=== PATIENT | female | born 1990 | race Caucasian/White ===

== ENCOUNTER 2023-08-03 05:24 | Inpatient (IN) ==
[2023-08-03] MEDS ORDERED: Prochlorperazine 5 mg/ml 2 ml VIAL (10 mg) IV PRN (05:45)
[2023-08-03] MEDS ORDERED: Lidocaine 1% VIAL 10 MG/ML 30 ML VIAL INJ PRN (05:45)
[2023-08-03 06:43] LABS: ABS Eosinophils 0.1 10^3/uL (0.0-0.5); ABS Lymphocytes 1.2 10^3/uL (1.0-4.8); ABS Monocytes 0.4 10^3/uL (0.0-0.9); ABS Neutrophils 6.6 10^3/uL (1.5-7.6); Eosinophil % 1.1 %; Hematocrit 33.9 % (35-45); Hemoglobin 11.9 g/dL (11.5-14.3); Lymphocyte % 14.2 %; Mean Corpuscular Hemoglobin 33.3 pg (27-33); Mean Corpuscular Hgb Conc 35.2 g/dL (31-36); Mean Corpuscular Volume 94.6 fL (80-97); Mean Platelet Volume 7.5 fL (7.5-11.2); Platelet Count 178 10^3/uL (150-450); Red Blood Count 3.58 10^6/uL (3.63-4.92); Red Cell Distribution Width 12.6 % (12-17); White Blood Count 8.3 10^3/uL (3.8-11.8)
[2023-08-03 07:11] LABS: Urine Benzodiazepine Screen None Detected (None Detect); Urine Opiates Screen None Detected (None Detect)
[2023-08-03] MEDS: OBEPIDURAL (200 ML) 200 ML EPIDURAL SCH (07:38)
[2023-08-03] MEDS: Lactated Ringers 1000 ml BAG 1,000 ML IV SCH (07:38)
[2023-08-03] MEDS ORDERED: Phenylephrine 40 mcg/mL 10mL (400mcg) SYRINGE IV PUSH PRN ×2 (08:37)
[2023-08-03] MEDS ORDERED: Sodium Citrate/Citric Acid LIQ 15 ML UDC PO PRN (08:37)
[2023-08-03] MEDS: Oxytocin in LR 20,000 MILLI.UNIT/1,000 ML BAG IV ONE (11:42)
[2023-08-03] MEDS: OBEPIDURAL (200 ML) 200 ML EPIDURAL ONE (13:25)
[2023-08-03] MEDS ORDERED: Glycerin ADULT 2.4 gm SUPP PR PRN (13:28)
[2023-08-03] MEDS ORDERED: Lactated Ringers 1000 ml BAG 1,000 ML IV SCH (14:00)
[2023-08-03] MEDS: Dibucaine 1% OINT 28.35 GM TUBE PR PRN (14:48)
[2023-08-03] MEDS: Witch Hazel PAD JAR TOPICAL PRN (14:49)
[2023-08-04 07:02] LABS: ABS Eosinophils 0.1 10^3/uL (0.0-0.5); ABS Lymphocytes 1.3 10^3/uL (1.0-4.8); ABS Monocytes 0.6 10^3/uL (0.0-0.9); ABS Neutrophils 5.8 10^3/uL (1.5-7.6); Eosinophil % 1.1 %; Hematocrit 33.5 % (35-45); Hemoglobin 11.7 g/dL (11.5-14.3); Lymphocyte % 17.2 %; Mean Corpuscular Hemoglobin 33.6 pg (27-33); Mean Corpuscular Volume 95.8 fL (80-97); Mean Platelet Volume 7.5 fL (7.5-11.2); Platelet Count 163 10^3/uL (150-450); Red Blood Count 3.49 10^6/uL (3.63-4.92); Red Cell Distribution Width 12.7 % (12-17); White Blood Count 7.8 10^3/uL (3.8-11.8)
[2023-08-04 08:00] VITALS: BP 100/65
[2023-08-04] MEDS: Lidocaine 1.5% EPI 1:200,000 30 ML SDV ONE (10:49)
[2023-08-04] MEDS: Lactated Ringers 1000 ml BAG 1,000 ML IV ONE ×2 (10:49)
[2023-08-04] MEDS: Buffered Lidocaine 1% SYRIN 1 ml INTRADERM ONE (10:49)
[2023-08-04] MEDS: Lactated Ringers 1000 ml BAG 1,000 ML IV SCH (10:50)
[2023-08-04] MEDS: Oxytocin in LR 20,000 MILLI.UNIT/1,000 ML BAG IV SCH (10:51)
[2023-08-04] MEDS: RHO D Immune Globulin (HUMAN) 300 MCG = 1,500 I.U. INJ IM ONE ×2 (12:54→14:35)
== END 2023-08-04 14:52 | disposition home or self-care (01) | DRG 807 ==
LOC: MCHOBOUT 05:24 → MCHOB 05:42
PROVIDERS: ADMIT Registered Nurse; ATTEND Advanced Practice Midwife